=== PATIENT | male | born 1940 | race Caucasian/White ===

== ENCOUNTER 2024-03-11 13:51 | Outpatient (AMB) | payer MEDICARE, OTHER, SELFPAY ==
--- NOTE | 2024-03-11 13:55 | HO.NEPHOV ---
HPI HPI Comments History of Present Illness Details I had the pleasure of seeing Mr Kirt accompanied by his in the office for her recent rise in serum creatinine on a background of mild chronic kidney disease. 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 He is known to have prostatic issues and sees Dr. Smart. He denies peripheral arterial disease but has history of carotid stenosis. He has history of longstanding hypertension and is on multiple antihypertensive medications. He is a prediabetic. He still is undergoing cardiac rehab. He does not have any chest tightness, orthostatic symptoms, nephrolithiasis, bone or back pain or pedal edema. He does not take any excessive nonsteroidal anti-inflammatories. He feels improved after his recent heart surgery. [facility] Medical History (Updated 03/11/24 @ 14:36 by Jose Burris MD) Subclinical hypothyroidism Restrictive lung disease Prediabetes Pleural plaque Lumbar radiculopathy Left carotid bruit Hyperlipidemia Esau's thyroiditis Gout Benign prostatic hyperplasia Benign colon polyp Benign essential hypertension Asthma Ascending aortic aneurysm Asbestosis Aortic stenosis Anxiety Surgical History (Updated 03/11/24 @ 13:21 by Minal Cr MA) History of prostate surgery History of ascending aorta repair History of aortic valve replacement with bioprosthetic valve Family History (Updated 03/11/24 @ 14:02 by Minal Cr MA) Daughter History of pancreas transplant Social History (Updated 03/11/24 @ 14:03 by Minal Cr MA) Alcohol intake: former Patient Tobacco Use Status: Former Tobacco user Vital Signs 03/11/24 13:57 Height 5 ft 5.35 in Weight 156 lb 2 oz BMI 25.7 BP 146/80 H Blood Pressure Location Lt brachial Position Sitting Pulse 48 L Pulse Source Pulse Oximeter Pulse Oximetry (%) 97 Oxygen Delivery Method Room Air Physical Exam Vital Signs: Last Vital Signs Pulse 48 L 03/11/24 13:57 BP 146/80 H 03/11/24 13:57 Pulse Ox 97 03/11/24 13:57 Oxygen Delivery Method Room Air 03/11/24 13:57 BMI result Body Mass Index 25.7 Const General: comfortable and no acute distress Orientation/consciousness: patient oriented x3 HEENT Head: Yes normocephalic Mouth: Normal oral and palatal mucosa present Eyes EOM: EOMs intact bilaterally Neck Neck: Yes supple Resp Auscultation: clear to auscultation bilaterally Cardio Jugular venous distension: no JVD Rate: regular rate GI Palpation (GI): Soft to palpation Auscultation: normal bowel sounds General: Yes no CVA tenderness Back/Spine/Pelvis Back: no CVA tenderness Skin General skin exam: no rashes or lesions noted Neuro General: patient oriented x3 and moves all extremities Extrem General: Yes no pedal edema Assessment & Plan Assessment & Plan (1) CKD (chronic kidney disease), stage III: Code(s): N18.30 - Chronic kidney disease, stage 3 unspecified Qualifiers: Chronic kidney disease stage 3 subtype: stage 3a (GFR 45-59) Qualified Code(s): N18.31 - Chronic kidney disease, stage 3a (2) Hypertension: Code(s): I10 - Essential (primary) hypertension Qualifiers: Hypertension type: primary hypertension Qualified Code(s): I10 - Essential (primary) hypertension Plan Mr Moralez most likely has milder renovascular disease given his other vascular issues. He has mild rise in serum creatinine lately. He has no orthostatic symptoms. He is on BRIDGETT-inhibitor. He never had a Doppler of renal arteries. He is not known to have significant proteinuria. He is not a diabetic. He does not take any nonsteroidal anti-inflammatories. His urine output is good. He takes finasteride. He most likely had mild tubular injury postoperatively after his recent heart surgery, which hopefully should resolve and get a serum creatinine back to baseline. If his serum creatinine does not settle down I plan to do a Doppler of renal arteries and shall consider cutting back on his BRIDGETT inhibitor. Further management is pending evolving data. Answered all his and his 's questions. Follow-up appointment given. Orders: Orders Blood Urea Nitrogen Today I10 - Essential (primary) hypertension, N18.31 - Chronic kidney disease, stage 3a Creatinine Today I10 - Essential (primary) hypertension, N18.31 - Chronic kidney disease, stage 3a Electrolytes Today I10 - Essential (primary) hypertension, N18.31 - Chronic kidney disease, stage 3a Calcium Today I10 - Essential (primary) hypertension, N18.31 - Chronic kidney disease, stage 3a Immunofixation Pnl, Serum Today I10 - Essential (primary) hypertension, N18.31 - Chronic kidney disease, stage 3a Protein Creatinine Ratio, Ur Today I10 - Essential (primary) hypertension, N18.31 - Chronic kidney disease, stage 3a Coding Level of Care Code New Pt Level 4 (68512) Diagnoses Stage 3a chronic kidney disease N18.31 Chronic kidney disease stage 3 subtype: stage 3a (GFR 45-59) Primary hypertension I10 Hypertension type: primary hypertension Results Reviewed Nephrology Results: No Data to Display
[2024-03-11 13:57] VITALS: BP 146/80; PULSE 48; O2SAT 97; BMI 25.7
== END 2024-03-11 14:25 | disposition home or self-care (01) ==
PROVIDERS: PCP Family Medicine; Referring Provider Family Medicine; Visit Provider Internal Medicine Nephrology
DX: N18.31 Chronic kidney disease, stage 3a (principal); I10 Essential (primary) hypertension
CPT/HCPCS: 99204

== ENCOUNTER → 2024-03-11 13:51 | Outpatient (BNVA) | payer MEDICARE, OTHER, SELFPAY | PROVIDERS: PCP Family Medicine; Referring Provider Family Medicine; Visit Provider Internal Medicine Nephrology | DX: I12.9 Hypertensive chronic kidney disease with stage 1 through stage 4 chronic kidney disease, or unspecified chronic kidney disease (principal); N18.31 Chronic kidney disease, stage 3a | CPT/HCPCS: 99202 ==

== ENCOUNTER 2024-09-09 13:34 | Outpatient (AMB) | payer MEDICARE, OTHER, SELFPAY ==
--- NOTE | 2024-09-09 13:36 | HO.NEPHOV_ITS ---
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 He is known to have prostatic issues and sees Dr. Smart. He denies peripheral arterial disease but has history of carotid stenosis. He has history of longstanding hypertension and is on multiple antihypertensive medications. He is a prediabetic. He still is undergoing cardiac rehab. He does not have any chest tightness, orthostatic symptoms, nephrolithiasis, bone or back pain or pedal edema. He does not take any excessive nonsteroidal anti-inflammatories. He feels improved after his recent heart surgery. His serum creatinine is close to baseline. [facility] Medical History (Updated 03/11/24 @ 14:36 by Jose Burris MD) Subclinical hypothyroidism Restrictive lung disease Prediabetes Pleural plaque Lumbar radiculopathy Left carotid bruit Hyperlipidemia Esau's thyroiditis Gout Benign prostatic hyperplasia Benign colon polyp Benign essential hypertension Asthma Ascending aortic aneurysm Asbestosis Aortic stenosis Anxiety Surgical History (Updated 03/11/24 @ 13:21 by Minal Cr MA) History of prostate surgery History of ascending aorta repair History of aortic valve replacement with bioprosthetic valve Family History (Updated 03/11/24 @ 14:02 by Minal Cr MA) Daughter History of pancreas transplant Social History (Updated 03/11/24 @ 14:03 by Minal Cr MA) Alcohol intake: former Patient Tobacco Use Status: Former Tobacco user Review of Systems Const All systems reviewed & are unremarkable except as noted in HPI and below Physical Exam Const General: comfortable and no acute distress Orientation/consciousness: patient oriented x3 HEENT Head: Yes normocephalic Mouth: Normal oral and palatal mucosa present Eyes EOM: EOMs intact bilaterally Neck Neck: Yes supple Resp Auscultation: clear to auscultation bilaterally Cardio Jugular venous distension: no JVD Rate: regular rate GI Palpation (GI): Soft to palpation Auscultation: normal bowel sounds General: Yes no CVA tenderness Back/Spine/Pelvis Back: no CVA tenderness Skin General skin exam: no rashes or lesions noted Neuro General: patient oriented x3 and moves all extremities Extrem General: Yes no pedal edema Results Reviewed Nephrology Results: No Data to Display Assessment & Plan Assessment & Plan (1) CKD (chronic kidney disease), stage III: Code(s): N18.30 - Chronic kidney disease, stage 3 unspecified Category: Medical Qualifiers: Chronic kidney disease stage 3 subtype: stage 3a (GFR 45-59) Qualified Code(s): N18.31 - Chronic kidney disease, stage 3a (2) Hypertension: Code(s): I10 - Essential (primary) hypertension Category: Medical Qualifiers: Hypertension type: primary hypertension Qualified Code(s): I10 - Essential (primary) hypertension Plan Mr Moralez most likely has milder renovascular disease given his other vascular issues. He had mild rise in serum creatinine which has settled to baseline now. He has no orthostatic symptoms. He is on BRIDGETT-inhibitor. He never had a Doppler of renal arteries. He is not known to have significant proteinuria. He is not a diabetic. He does not take any nonsteroidal anti-inflammatories. His urine output is good. He takes finasteride. Follow-up appointment given. Orders: Orders Blood Urea Nitrogen 8 Months I10 - Essential (primary) hypertension, N18.31 - Chronic kidney disease, stage 3a Creatinine 8 Months I10 - Essential (primary) hypertension, N18.31 - Chronic kidney disease, stage 3a Electrolytes 8 Months I10 - Essential (primary) hypertension, N18.31 - Chronic kidney disease, stage 3a Coding Level of Care Code Est Pt Level 4 (92534) Diagnoses Stage 3a chronic kidney disease N18.31 Chronic kidney disease stage 3 subtype: stage 3a (GFR 45-59) Primary hypertension I10 Hypertension type: primary hypertension
[2024-09-09 13:37] VITALS: BP 110/64; PULSE 57; O2SAT 92; BMI 27.6
== END 2024-09-09 13:52 | disposition home or self-care (01) ==
PROVIDERS: PCP Family Medicine; Visit Provider Internal Medicine Nephrology
DX: N18.31 Chronic kidney disease, stage 3a (principal); I10 Essential (primary) hypertension
CPT/HCPCS: 99214

== ENCOUNTER → 2024-09-09 13:34 | Outpatient (BNVA) | payer MEDICARE, OTHER, SELFPAY | PROVIDERS: PCP Family Medicine; Visit Provider Internal Medicine Nephrology | DX: I12.9 Hypertensive chronic kidney disease with stage 1 through stage 4 chronic kidney disease, or unspecified chronic kidney disease (principal); N18.31 Chronic kidney disease, stage 3a; Z95.2 Presence of prosthetic heart valve | CPT/HCPCS: 99212 ==

== ENCOUNTER 2025-05-26 15:07 | Outpatient (AMB) | payer MEDICARE, OTHER, SELFPAY ==
[2025-05-26 15:11] VITALS: BP 115/58; PULSE 58; O2SAT 100; BMI 27.6
--- NOTE | 2025-05-26 15:11 | HO.NEPHOV_ITS ---
Vital Signs 05/26/25 15:11 Height 5 ft 3.5 in Weight 158 lb 7 oz BMI 27.6 BP 115/58 L Blood Pressure Location Lt brachial Position Sitting Pulse 58 Pulse Source Pulse Oximeter Pulse Oximetry (%) 100 Oxygen Delivery Method Room Air Intake Visit Reasons: 6 month F/U-LVM Intake Note: Patient here for a follow-up. 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 He is known to have prostatic issues and sees Dr. Smart. He denies peripheral arterial disease but has history of carotid stenosis. He has history of longstanding hypertension and is on multiple antihypertensive medications. He is a prediabetic. He still is undergoing cardiac rehab. He does not have any chest tightness, orthostatic symptoms, nephrolithiasis, bone or back pain or pedal edema. He does not take any excessive nonsteroidal anti-inflammatories. He feels improved after his recent heart surgery. His serum creatinine is close to baseline. [facility] Medical History Subclinical hypothyroidism Restrictive lung disease Prediabetes Pleural plaque Lumbar radiculopathy Left carotid bruit Hyperlipidemia Esau's thyroiditis Gout Benign prostatic hyperplasia Benign colon polyp Benign essential hypertension Asthma Ascending aortic aneurysm Asbestosis Aortic stenosis Anxiety Surgical History History of prostate surgery History of ascending aorta repair History of aortic valve replacement with bioprosthetic valve Family History Daughter History of pancreas transplant Social History Alcohol intake: former Patient Tobacco Use Status: Former Tobacco user Review of Systems Const All systems reviewed & are unremarkable except as noted in HPI and below Physical Exam Vital Signs: Last Vital Signs Pulse 58 05/26/25 15:11 BP 115/58 L 05/26/25 15:11 Pulse Ox 100 05/26/25 15:11 Oxygen Delivery Method Room Air 05/26/25 15:11 BMI result Body Mass Index 27.6 Const General: comfortable and no acute distress Orientation/consciousness: patient oriented x3 HEENT Head: Yes normocephalic Mouth: Normal oral and palatal mucosa present Eyes EOM: EOMs intact bilaterally Neck Neck: Yes supple Resp Auscultation: clear to auscultation bilaterally Cardio Jugular venous distension: no JVD Rate: regular rate GI Palpation (GI): Soft to palpation Auscultation: normal bowel sounds General: Yes no CVA tenderness Back/Spine/Pelvis Back: no CVA tenderness Skin General skin exam: no rashes or lesions noted Neuro General: patient oriented x3 and moves all extremities Extrem General: Yes no pedal edema Assessment & Plan Assessment & Plan (1) CKD (chronic kidney disease), stage III: Code(s): N18.30 - Chronic kidney disease, stage 3 unspecified Category: Medical Qualifiers: Chronic kidney disease stage 3 subtype: stage 3a (GFR 45-59) Qualified Code(s): N18.31 - Chronic kidney disease, stage 3a (2) Hypertension: Code(s): I10 - Essential (primary) hypertension Category: Medical Qualifiers: Hypertension type: primary hypertension Qualified Code(s): I10 - Essential (primary) hypertension Plan Mr Moralez most likely has milder renovascular disease given his other vascular issues. He had mild rise in serum creatinine which has settled to baseline now. He has no orthostatic symptoms. He is on BRIDGETT-inhibitor. He never had a Doppler of renal arteries. He is not known to have significant proteinuria. He is not a diabetic. He does not take any nonsteroidal anti-inflammatories. His urine output is good. He takes finasteride. I did not make any medication changes. F/U labs ordered. Follow-up appointment given Orders: Orders Creatinine 8 Months N18.31 - Chronic kidney disease, stage 3a, I10 - Essential (primary) hypertension Electrolytes 8 Months N18.31 - Chronic kidney disease, stage 3a, I10 - Essential (primary) hypertension Calcium 8 Months N18.31 - Chronic kidney disease, stage 3a, I10 - Essential (primary) hypertension UA and rflx microscopic 8 Months N18.31 - Chronic kidney disease, stage 3a, I10 - Essential (primary) hypertension Blood Urea Nitrogen 8 Months N18.31 - Chronic kidney disease, stage 3a, I10 - Essential (primary) hypertension Protein Creatinine Ratio, Ur 8 Months N18.31 - Chronic kidney disease, stage 3a, I10 - Essential (primary) hypertension Coding Level of Care Code Est Pt Level 4 (46956) Diagnoses Stage 3a chronic kidney disease N18.31 Chronic kidney disease stage 3 subtype: stage 3a (GFR 45-59) Primary hypertension I10 Hypertension type: primary hypertension
--- OUTSIDE RECORDS SUMMARY | 2025-05-26 18:22 | XMS_ITS | Encounter Summary ---
Author Organization [facility] Address [address] [place] [address] Phone Care Team Providers Care Sharepoint Consultant Name Role Phone Richard Jhaveri DO Primary Care Provider [phone] Encounter Details Date Type Department Care Team (Late st Contact Info) Description 05/06/2021 Orders Only [facility] [address] [place] [id number] Sunil Mathew MD Chronic kidney disease, stage 2 (mild) Social History Tobacco Use Types Packs/Day Years Used Date Smoking Tobacco: Former Smokeless Tobacco: Former Alcohol Use Standard Drinks/Week Comments Yes 0 (1 standard drink = 0.6 oz pur e alcohol) Fridays-liquor Sex and Gender Information Value Date Recorded Sex Assigned at Not on file Legal Sex Male 1:22 PM EDT Gender Identity Not on file Sexual Orientation Not on file documented as of this encounter Plan of Treatment Not on file documented as of this encounter Visit Diagnoses Diagnosis Chronic kidney disease, stage 2 (mild) documented in this encounter Care Teams Sharepoint Consultant Relationship Specialty Start Date End Date Richard Jhaveri DO [address] [place] [address] PCP - General Family Medicine 02/22/21 documented as of this encounter
== END 2025-05-26 15:48 | disposition home or self-care (01) ==
LOC: HO.HKAS 15:08
PROVIDERS: PCP Nurse Practitioner; Visit Provider Internal Medicine Nephrology
DX: N18.31 Chronic kidney disease, stage 3a (principal); I10 Essential (primary) hypertension
CPT/HCPCS: 99214

== ENCOUNTER → 2025-05-26 15:07 | Outpatient (BNVA) | payer MEDICARE, OTHER, SELFPAY | PROVIDERS: PCP Nurse Practitioner; Visit Provider Internal Medicine Nephrology | DX: I12.9 Hypertensive chronic kidney disease with stage 1 through stage 4 chronic kidney disease, or unspecified chronic kidney disease (principal); N18.31 Chronic kidney disease, stage 3a | CPT/HCPCS: 99212 ==